=== PATIENT | female | born 1985 | race Two or more races ===

== ENCOUNTER 2018-11-05 17:46 | Emergency (ER) | payer OTHER ==
[~2018-11-05] VITALS: Ht 165.1 cm; Wt 56.8 kg
[2018-11-05] MEDS ORDERED: SOD CHLORIDE 0.9% 500 ML IV STA (17:55)
[2018-11-05 18:08] VITALS: Ht 165.1 cm; Wt 56.8 kg
--- NOTE | 2018-11-05 18:54 | ERD ---
ER Documentation Chief Complaint Chief Complaint generalized weakness and davis, dizziness x 2 months HPI This is a 33-year-old female with a past medical history of headaches is presenting with a transient episode of palpitations, increased anxiousness, numbness and tingling to the hands and feet bilaterally, lightheadedness and a sensation that she was going to pass out. An ambulance was called. The patient's heart rate was reportedly anywhere from the 120s to the 130s. She seemed flushed in route to the hospital. The patient's symptoms have since improved. The patient endorses a waxing and waning headache over the last 2 months. She was evaluated recently in an emergency department where she had a full work-up including a negative CT scan. The patient does not endorse a headache at this time. The patient has no dizziness. The room is not spinning. She has no photophobia or phonophobia or blurry or double vision. She denies any focal deficits. The patient felt well prior to this incident. 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 The patient denies feeling sick recently. The patient denies fever or chills. The patient does not endorse neck or back pain. The patient has had no chest pain or trouble breathing. The patient denies nausea or vomiting. The patient denies abdominal pain. The patient denies changes to bowel movements or urination. ROS All systems reviewed and are negative except as per history of present illness. PMhx/Soc Medical and Surgical Hx: pt denies Medical Hx, pt denies Surgical Hx Anesthesia Reaction: No Hx Neurological Disorder: No Hx Respiratory Disorders: No Hx Cardiac Disorders: No Hx Psychiatric Problems: No Hx Miscellaneous Medical Probl: No Hx Alcohol Use: No Hx Substance Use: No Hx Tobacco Use: No Smoking Status: Never smoker FmHx Family History: No diabetes Physical Exam Vitals Vital Signs Date Temp Pulse Resp B/P (MAP) Pulse Ox O2 O2 Flow FiO2 Time Delivery Rate 11/05/18 98.1 76 18 130/79 100 18:08 (96) Physical Exam Const: No apparent distress, well-developed, well-nourished Head: Normocephalic, Atraumatic Eyes: Normal Conjunctiva. Extraocular movements intact. Pupils equal, round and reactive to light ENT: Normal External Ears, Nose and Mouth. Neck: Full range of motion. No meningismus. Resp: Clear to auscultation bilaterally, No wheezes, rales or rhonchi Cardio: Regular rate and rhythm. No murmurs, rubs or gallops Abd: Soft, non tender, non distended. Normal bowel sounds Skin: No petechiae or rashes Back: No midline tenderness. No CVA tenderness Ext: No cyanosis, or edema Neur: Awake and alert, oriented 4. Cranial nerves intact. No facial droop. Normal strength, sensation and coordination. Psych: Anxious Result Diagram: 11/05/18181911/05/181819 Results 24 hrs Laboratory Tests Test 11/05/18 18:20 11/05/18 19:00 11/05/18 19:03 11/05/18 19:11 White Blood Count 6.5 10^3/ul Red Blood Count 4.35 10^6/ul Hemoglobin 11.9 g/dl Hematocrit 36.4 % Mean Corpuscular 83.7 fl Volume Mean Corpuscular 27.4 pg Hemoglobin Mean Corpuscular 32.7 g/dl Hemoglobin Concen t Red Cell 12.5 % Distribution Width Platelet Count 210 10^3/UL Mean Platelet 10.6 fl Volume Immature 0.200 % Granulocytes % Neutrophils % 70.4 % Lymphocytes % 22.3 % Monocytes % 6.5 % Eosinophils % 0.3 % Basophils % 0.3 % Nucleated Red 0.0 /100WBC Blood Cells % Immature 0.010 10^3/ul Granulocytes # Neutrophils # 4.6 10^3/ul Lymphocytes # 1.5 10^3/ul Monocytes # 0.4 10^3/ul Eosinophils # 0.0 10^3/ul Basophils # 0.0 10^3/ul Nucleated Red 0.0 10^3/ul Blood Cells # Sodium Level 140 mmol/L Potassium Level 3.4 mmol/L Chloride Level 105 mmol/L Carbon Dioxide 25 mmol/L Level Anion Gap 10 Blood Urea 12 mg/dl Nitrogen Creatinine 0.57 mg/dl Est Glomerular > 60 mL/min Filtrat Rate mL/min Glucose Level 157 mg/dl Calcium Level 9.3 mg/dl Troponin I < 0.012 ng/ml Ethyl Alcohol < 10.0 mg/dl Level Urine Color STRAW Urine Clarity CLEAR Urine pH 9.0 Urine Specific 1.005 [place] Urine Ketones NEGATIVE mg/dL Urine Nitrite NEGATIVE mg/dL Urine Bilirubin NEGATIVE mg/dL Urine NEGATIVE mg/dL Urobilinogen Urine Leukocyte 1+ James/ul Esterase Urine Microscopic 2 /HPF RBC Urine Microscopic 16 /HPF WBC Urine Squamous FEW /HPF Epithelial Cells Urine Bacteria FEW /HPF Urine Hemoglobin 1+ mg/dL Urine Glucose NEGATIVE mg/dL Urine Total NEGATIVE mg/dl Protein Bedside Glucose 134 mg/dL POC Beta HCG, NEGATIVE Qualitative Current Medications Medications Dose Sig/Mc Start Time Status Last (Trade) Ordered Route PRN Stop Time Admin Dose Reason Admin Sodium 500 ml @ Q1H STAT 11/05/18 DC 11/05/18 Chloride 500 mls/hr IV 17:55 18:36 11/05/18 18:54 Procedures/MDM MDM The patient's presentation warrants further investigation. Previous medical records, if available, were reviewed. LABS The patient's laboratory testing was obtained and reviewed. No emergent treatment was required unless described below. CBC: No E/o systemic infection or thrombocytopenia. Mild normocytic anemia, not emergent. Chemistry: No E/o severe acidosis or alkalosis or renal failure or diabetic ketoacidosis. Mild hypokalemia. Troponin: No E/o acute ischemia Urine: E/o acute infection with hematuria Tox: No E/o alcohol abuse. EKG EKG read by me: Rate/Rhythm: Regular rate and rhythm at a rate of 75 bpm Intervals: Normal [place]: Normal Impression: No evidence of acute ischemia or arrhythmia IMAGING Imaging and Radiology interpretation reviewed. CXR FINDINGS: The cardiomediastinal silhouette is within normal limits. The lungs are clear. There is no evidence for pleural effusion, pneumothorax or pulmonary vascular congestion. The osseous structures are intact with no evidence for acute abnormality. IMPRESSION: No evidence for acute intrathoracic pathology. Electronically viewed and signed by Godfrey Lerma Physician on 11/05/2018 18:42 TREATMENT/DISPOSITION The patient presents with symptoms that are potentially concerning for a near syncopal event. The patient is very anxious in the room. Anxiousness could certainly correlate with her symptoms today. That said, a full work-up was completed. The patient presents after a syncopal event. The patient has a reassuring physical exam. The patient is not clinically orthostatic. The patient is not dizzy. I have decreased suspicion for vertigo. The patient has no signs of emergent or symptomatic anemia. The patient does not have any emergent electrolyte or metabolic emergencies. I have decrease suspicion for a thyroid disorder. The patient is not toxic appearing. I have decreased suspicion for an infectious etiology of symptoms. That said, the patient does have a urinary tract infection that may be treated in an outpatient setting. The patient's EKG and troponin are reassuring. I have low suspicion for acute coronary syndrome. I do not see evidence of any emergent cardiac arrhythmia, which includes but is not limited to heart block, Brugada syndrome or WPW. The patient's EKG from the paramedics reveals sinus tachycardia. I do not suspect A. fib with RVR. I do not suspect SVT. The patient has no heart murmurs or rales. There is no evidence of cardiomegaly on exam or chest xray. I have low suspicion for hypertrophic cardiomyopathy. I do not see evidence of CHF. The patient does not endorse any chest or pleuritic pain. The history is negative for bleeding or clotting disorders. The patient has not been involved in any recent prolonged trips or surgeries or hospitalizations. The patient has no calf tenderness or swelling. I have decreased suspicion for PE as the etiology of symptoms. The patient reports a history of headaches, but she does not have a headache right now. The patient presents with a headache. Differential diagnosis includes migraine, tension headache, cluster headache. The patient has no focal deficits. The neurologic exam is reassuring. I have decreased suspicion for c erebral ischemia. There was no trauma or injury. There is no personal or family history of cerebral aneurysm. This is not the worst headache of the patient's life. It was not acutely severe. It is been progressive in nature. I have decreased suspicion for SAH or other ICH. I have low suspicion for temporal arteritis, cavernous venous thrombosis, subdural hematoma, epidural hematoma, meningitis. The patient was treated with normal saline. The patient was observed in the emergency department without any recurrent symptoms. The patient understands that if the symptoms persist, she may benefit from further evaluation by cardiology with a Holter monitor. The patient does not require inpatient assessment. DISCHARGE Upon reevaluation of the patient, symptoms have improved. No emergent diagnoses were identified. At this time, I feel that the patient stable for discharge. The patient was instructed to follow-up with a primary care physician in 1-3 days. The patient will be given strict precautions with which to return to the emergency department. Prescriptions: Keflex The patient's blood pressure was elevated at greater than 120/80 while in the emergency department. The patient was otherwise stable with no evidence of hypertensive urgency or emergency. The patient does not require admission for blood pressure control. I have discussed with the patient the risks of hypert ension. I have instructed the patient to return to the ER for any new or worsening symptoms including chest pain, shortness of breath, headache, blurred vision, confusion, nausea, vomiting or LOC. I have advised the patient to follow up with the primary care physician for outpatient monitoring and treatment for hypertension in 1-3 days. Disclaimer: Inadvertent spelling and grammatical errors are likely due to EHR/dictation software use and do not reflect on the overall quality of patient care. Note that the electronic time recorded on this note does not necessarily reflect the actual time of the patient encounter. Departure Diagnosis: Primary Impression: Palpitations Additional Impressions: Near syncope Paresthesias Anxiousness Urinary tract infection Urinary tract infection type: acute cystitis Hematuria presence: with hematuria Qualified Codes: N30.01 - Acute cystitis with hematuria Hypokalemia Normocytic anemia Condition: Stable Patient Instructions: Near Syncope, Unknown, Palpitations, Paraesthesias Additional Instructions: Thank you for for coming to [facility] for your care today. Please ask your nurse or provider if you have questions about your care today and do not leave until all your questions have been answered. Please use any medications given as directed and follow-up with your doctor (or the doctor you were referred to) in the next 1-3 days. If you do not have a primary care doctor you may follow up at the [facility] or [facility] (listed below). You may also use motrin and tylenol as needed for fever and/or pain unless instructed otherwise by your provider or nurse. Indications for more urgent follow-up have been discussed, but you may return to the Emergency Department at ANY time for any worrisome or worsening symptoms. If you have abdominal pain, please know that no test or exam you received is perfect and you should follow up within 8 hours for continued pain. If you had any imaging studies today, such as an X-Ray or CT Scan, these studies will be reviewed later by a radiologist. You will be called if there are important findings that were not identified today, so make sure the contact information you provided at registration is correct. If you received any narcotic pain control medicine today, such as Vicodin, Morphine or Dilaudid, your coordination and judgment may be affected for a number of hours. Please do not drive or operate heavy machinery, and you may want someone to assist you at home. If you were given a prescription for narcotic medication, be aware that it is very addictive- use sparingly and only if necessary. PLEASE SEEK FURTHER EVALUATION AND MANAGEMENT AT YOUR DOCTORS OFFICE WITHIN THE NEXT 1-3 DAYS. IT IS YOUR RESPONSIBILITY TO MAKE AN APPOINTMENT FOR FOLOW-UP CARE. IF YOU HAVE A PRIMARY DOCTOR, PLEASE CALL THEIR OFFICE TO SCHEDULE AN APPOINTMENT FOR FOLLOW UP. IF YOU DO NOT HAVE A PRIMARY DOCTOR YOU CAN CALL OUR PHYSICIAN REFERRAL HOTLINE AT IF YOU CAN NOT AFFORD TO SEE A PHYSICIAN YOU CAN CHOSE FROM THE FOLLOWING [facility] CLINICS[facility] [address] [facility]. [facility] [address] [facility]. [facility] [[email or web address] [id number] [facility] [facility] [address] [facility]. [facility] [address] [facility] [facility]. [address] ARELIS PRUETT MD November 05, 2018 18:54
[2018-11-05 19:01] VITALS: BP 108/60; PULSE 66; RESP 16
[2018-11-05] MEDS ORDERED: CEPH-443 PO (19:54)
== END 2018-11-05 19:01 | disposition home or self-care (01) ==
LOC: E/R 17:46
DX: R55 Syncope and collapse (principal); R20.2 Paresthesia of skin; F41.9 Anxiety disorder, unspecified; N30.01 Acute cystitis with hematuria; E87.6 Hypokalemia; D64.9 Anemia, unspecified
CPT/HCPCS: 71045; 80048; 80307; 81001; 81025; 82962; 84443; 84484; 85025; 93005; J7040; Z7502